=== PATIENT | male | born 1970 | race Caucasian/White ===

== ENCOUNTER 2020-06-18 09:05 | Outpatient (REF) | payer OTHER, SELFPAY ==
[2020-06-18 10:35] LABS: MANUAL DIFF FLAG NO
[2020-06-18 10:41] LABS: Basophils Absolute Auto 0.1 X10*3/uL (0.0-0.2); Eosinophils Absolute Auto 0.3 X10*3/uL (0.0-0.4); Eosinophils Percent Auto 4.6 % (0-4); Hemoglobin 15.6 g/dl (14.0-18.0); Imm Gran Abs Auto 0.03 X10*3/uL (0.00-0.03); Imm Gran Pct Auto 0.5 % (0.0-0.4); Lymphocytes Absolute Auto 1.9 X10*3/uL (1.2-4.9); Lymphocytes Percent Auto 32.9 % (20-40); Mean Corpuscular HGB Conc 33.2 g/dl (31.0-36.0); Mean Corpuscular Hemoglobin 28.1 pg (27.0-33.0); Mean Corpuscular Volume 84.7 fL (80-98); Mean Platelet Volume 9.5 fL (9.4-12.4); Monocytes Absolute Auto 0.7 X10*3/uL (0.1-1.2); Monocytes Percent Auto 12.6 % (2-11); Neutrophils Absolute Auto 2.9 X10*3/uL (2.0-8.3); Neutrophils Percent Auto 48.4 % (45-73); Platelet Count 229 X10*3/uL (160-400); Red Blood Count 5.55 X10*6/uL (4.60-5.80); White Blood Count 5.9 X10*3/uL (4.8-10.8)
[2020-06-18 11:09] LABS: Alanine Aminotransferase 33 U/L (0-40); Albumin Level 4.8 g/dL (3.5-5.0); Alkaline Phosphatase 60 U/L (39-117); Anion Gap 13 (12-20); Aspartate Amino Transferase 19 U/L (5-37); Bilirubin Total 0.8 mg/dL (0.0-1.0); Blood Urea Nitrogen 19 mg/dL (9-16); Calcium 9.6 mg/dL (8.4-10.2); Carbon Dioxide 28 mmol/L (22-29); Chloride 103 mmol/L (96-108); Cholesterol 253 mg/dL; Estimated Glomerular Filt Rate > 60; Glucose Fasting 93 mg/dL (60-99); HDL Cholesterol 50 mg/dL; LDL Cholesterol Calculated 163 mg/dl; Potassium 4.5 mmol/l (3.3-5.1); Sodium 139 mmol/L (135-145); Total Protein 7.7 g/dL (6.5-8.0); Triglycerides 204 mg/dL
== END 2020-06-18 09:06 | disposition home or self-care (01) ==
LOC: HO.WFDLDS 09:05
PROVIDERS: PCP Internal Medicine; Visit Provider Internal Medicine
DX: E78.5 Hyperlipidemia, unspecified (principal)
CPT/HCPCS: 36415; 80053; 80061; 85025

== ENCOUNTER 2022-09-26 09:33 | Outpatient (REF) | payer OTHER, SELFPAY ==
[2022-09-26 09:40] LABS: MANUAL DIFF FLAG NO
[2022-09-26 10:42] LABS: Basophils Absolute Auto 0.1 X10*3/uL (0.0-0.2); Basophils Percent Auto 1.4 % (0-2); Eosinophils Absolute Auto 0.4 X10*3/uL (0.0-0.4); Eosinophils Percent Auto 6.6 % (0-4); Hematocrit 46.5 % (42.0-52.0); Hemoglobin 15.5 g/dl (14.0-18.0); Imm Gran Abs Auto 0.03 X10*3/uL (0.00-0.03); Imm Gran Pct Auto 0.5 % (0.0-0.4); Lymphocytes Absolute Auto 2.4 X10*3/uL (1.2-4.9); Lymphocytes Percent Auto 36.9 % (20-40); Mean Corpuscular HGB Conc 33.3 g/dl (31.0-36.0); Mean Corpuscular Hemoglobin 27.8 pg (27.0-33.0); Mean Corpuscular Volume 83.5 fL (80.0-98.0); Mean Platelet Volume 9.6 fL (9.4-12.4); Monocytes Absolute Auto 0.8 X10*3/uL (0.1-1.2); Monocytes Percent Auto 11.9 % (2-11); Neutrophils Absolute Auto 2.8 x10*3/uL (2.0-8.3); Neutrophils Percent Auto 42.7 % (45-73); Platelet Count 225 X10*3/uL (160-400); Red Blood Count 5.57 X10*6/uL (4.60-5.80); Red Cell Distribution Width 13.2 % (11.0-16.0); White Blood Count 6.5 X10*3/uL (4.8-10.8)
[2022-09-26 11:23] LABS: Alanine Aminotransferase 45 U/L (0-40); Albumin Level 4.5 g/dL (3.5-5.0); Alkaline Phosphatase 57 U/L (39-117); Anion Gap 13 (12-20); Aspartate Amino Transferase 23 U/L (5-37); Bilirubin Total 0.6 mg/dL (0.0-1.0); Blood Urea Nitrogen 19 mg/dL (9-16); Calcium 9.8 mg/dL (8.4-10.2); Carbon Dioxide 27 mmol/L (22-29); Chloride 103 mmol/L (96-108); Cholesterol 265 mg/dL; Estimated Glomerular Filt Rate > 60; Glucose Fasting 86 mg/dL (60-99); HDL Cholesterol 57 mg/dL; LDL Cholesterol Calculated 186 mg/dl; Potassium 4.4 mmol/L (3.3-5.1); Sodium 139 mmol/L (135-145); Total Protein 7.6 g/dL (6.5-8.0); Triglycerides 113 mg/dL
[2022-09-26 11:29] LABS: PSA,Total (Free>4and<10) 0.99 ng/mL (0.00-4.00)
== END 2022-09-26 09:34 | disposition home or self-care (01) ==
LOC: HO.LAB 09:33
PROVIDERS: PCP Internal Medicine; Visit Provider Internal Medicine
DX: Z00.00 Encounter for general adult medical examination without abnormal findings (principal); Z12.5 Encounter for screening for malignant neoplasm of prostate; E78.5 Hyperlipidemia, unspecified
CPT/HCPCS: 36415; 80053; 80061; 84153; 85025

== ENCOUNTER 2022-11-26 08:09 | Outpatient (REF) | payer OTHER, SELFPAY ==
[2022-11-26 09:48] LABS: Alanine Aminotransferase 48 U/L (0-40); Albumin Level 4.5 g/dL (3.5-5.0); Alkaline Phosphatase 54 U/L (39-117); Anion Gap 15 (12-20); Aspartate Amino Transferase 22 U/L (5-37); Bilirubin Total 0.7 mg/dL (0.0-1.0); Blood Urea Nitrogen 17 mg/dL (9-16); Calcium 9.4 mg/dL (8.4-10.2); Carbon Dioxide 26 mmol/L (22-29); Chloride 105 mmol/L (96-108); Cholesterol 197 mg/dL; Estimated Glomerular Filt Rate > 60; Glucose Fasting 96 mg/dL (60-99); HDL Cholesterol 50 mg/dL; LDL Cholesterol Calculated 130 mg/dl; Potassium 4.7 mmol/L (3.3-5.1); Sodium 141 mmol/L (135-145); Total Protein 7.2 g/dL (6.5-8.0); Triglycerides 86 mg/dL
== END 2022-11-26 08:10 | disposition home or self-care (01) ==
LOC: HO.LAB 08:09
PROVIDERS: PCP Internal Medicine; Visit Provider Internal Medicine
DX: Z00.00 Encounter for general adult medical examination without abnormal findings (principal); E78.5 Hyperlipidemia, unspecified
CPT/HCPCS: 36415; 80053; 80061

== ENCOUNTER 2023-01-28 07:57 | Outpatient (REF) | payer OTHER, SELFPAY ==
[2023-01-28 08:55] LABS: Alanine Aminotransferase 39 U/L (0-40); Albumin Level 4.5 g/dL (3.5-5.0); Alkaline Phosphatase 55 U/L (39-117); Anion Gap 15 (12-20); Aspartate Amino Transferase 22 U/L (5-37); Bilirubin Total 0.6 mg/dL (0.0-1.0); Blood Urea Nitrogen 17 mg/dL (9-16); Calcium 9.7 mg/dL (8.4-10.2); Carbon Dioxide 27 mmol/L (22-29); Chloride 107 mmol/L (96-108); Cholesterol 202 mg/dL; Estimated Glomerular Filt Rate > 60; Glucose Fasting 101 mg/dL (60-99); HDL Cholesterol 52 mg/dL; LDL Cholesterol Calculated 128 mg/dl; Potassium 4.6 mmol/L (3.3-5.1); Sodium 144 mmol/L (135-145); Total Protein 7.3 g/dL (6.5-8.0); Triglycerides 111 mg/dL
== END 2023-01-28 07:58 | disposition home or self-care (01) ==
LOC: HO.LAB 07:57
PROVIDERS: PCP Internal Medicine; Visit Provider Internal Medicine
DX: E78.5 Hyperlipidemia, unspecified (principal)
CPT/HCPCS: 36415; 80053; 80061

== ENCOUNTER 2023-05-27 08:22 | Outpatient (REF) | payer OTHER, SELFPAY ==
[2023-05-27 08:53] LABS: Estimated Average Glucose 94 mg/dL; Hemoglobin A1c % 4.9 % (<6.0)
[2023-05-27 09:00] LABS: Alanine Aminotransferase 28 U/L (0-40); Albumin Level 4.6 g/dL (3.5-5.0); Alkaline Phosphatase 53 U/L (39-117); Anion Gap 11 (12-20); Aspartate Amino Transferase 18 U/L (5-37); Bilirubin Total 0.5 mg/dL (0.0-1.0); Blood Urea Nitrogen 18 mg/dL (9-16); Calcium 9.8 mg/dL (8.4-10.2); Carbon Dioxide 27 mmol/L (22-29); Chloride 106 mmol/L (96-108); Cholesterol 188 mg/dL (<200); Estimated Glomerular Filt Rate > 60; Glucose Fasting 95 mg/dL (60-99); HDL Cholesterol 57 mg/dL (>40); LDL Cholesterol Calculated 111 mg/dL (<100); Potassium 4.4 mmol/L (3.3-5.1); Sodium 140 mmol/L (135-145); Total Protein 7.5 g/dL (6.5-8.0); Triglycerides 102 mg/dL (<150)
== END 2023-05-27 08:23 | disposition home or self-care (01) ==
LOC: HO.LAB 08:22
PROVIDERS: PCP Internal Medicine; Visit Provider Internal Medicine
DX: E78.5 Hyperlipidemia, unspecified (principal)
CPT/HCPCS: 36415; 80053; 80061; 83036

== ENCOUNTER 2023-05-29 11:50 | Outpatient (AMB) | payer OTHER, SELFPAY ==
--- NOTE | 2023-05-29 12:01 | A.OFFPC_ITS ---
Vital Signs 05/29/23 12:02 05/29/23 12:41 Height 5 ft 9 in Weight 236 lb BMI 34.8 BP 150/96 H 140/90 H Blood Pressure Location Lt brachial Rt brachial Position Sitting Sitting Pulse 90 Pulse Source Pulse Oximeter Pulse Oximetry (%) 97 Oxygen Delivery Method Room Air Intake Visit Reasons: 4 month follow up Allergies No Known Allergies Allergy (Verified 05/29/23 12:04) Medication List - Last Reconciled 05/29/23 by Misty Pratt MD latanoprost 0.005% drps ophthalmic (eye) pravastatin 40 mg PO DAILY Tobacco use date assessed: 05/29/23 Dental Screening Dental Screen Date: 05/29/23 Did you have a dental visit in the last 12 months?: Yes Did you have a dental problem in the last 6 months where you did not have access to dental care?: No Was dental information given to patient?: Patient has dentist HPI 4 month follow up HPI Details PATIENT PRESENTS FOR THE FOLLOW-UP OF HYPERLIPIDEMIA. He has been tolerating pravastatin. [facility] Medical History Normal colonoscopy Annual physical exam Glaucoma Hyperlipidemia Surgical History No pertinent past surgical history Family History Father HTN (hypertension) Mother Diabetes mellitus Brother No problems noted. Brother Substance use disorder Social History Housing: House Patient Tobacco Use Status: Never used Tobacco e-Cigarette/Vaping Use: Never Used Current occupational status: employed Cognitive needs: No Hearing needs: No Vision needs: Yes Questionnaire Thrive Questionnaire Date Thrive assessed: 09/30/22 BRANDON-7 AMB Questionnaire BRANDON-7 Date BRANDON - 7 assessed: 09/30/22 Source: Developed by Drs. Fredrick Potter, Loree Rivers, Ahlaji Hinton and colleagues, with an educational dave from [employer]. Review of Systems Const All systems reviewed & are unremarkable except as noted in HPI and below Reports no additional complaints Eyes Reports no additional complaints ENT Reports no additional complaints Card Reports no additional complaints Resp Reports no additional complaints GI Reports no additional complaints Physical exam (Primary Care) Vital Signs: Last Vital Signs Pulse 90 05/29/23 12:02 BP 150/96 H 05/29/23 12:02 Pulse Ox 97 05/29/23 12:02 Oxygen Delivery Method Room Air 05/29/23 12:02 BMI result Body Mass Index 34.8 Tobacco/Smoking Status: Tobacco use Status Tobacco use date assessed 05/29/23 05/29/23 12:06 Patient Tobacco Use Status Never used Tobacco 05/29/23 12:06 e-Cigarette/Vaping Use Never Used 05/29/23 12:06 Thrive Assessment: Date of Thrive Assessment Date Thrive assessed 09/30/22 05/29/23 12:06 Const General: no acute distress HENMT Head: Yes normal to inspection Neck Neck: Yes supple Resp Effort & Inspection: normal respiratory effort Auscultation: clear to auscultation bilaterally Cardio Rhythm: regular rhythm Heart sounds: S1 normal heart sound present and S2 normal heart sound present Assessment and Plan Assessment & Plan (1) Elevated BP without diagnosis of hypertension: Code(s): R03.0 - Elevated blood-pressure reading, without diagnosis of hypertension Plan: Start 5 mg of olmesartan, low sodium diet increase physical activity weight loss of 10 lb discussed with the patient. He will follow-up in 2 months (2) Hyperlipidemia: Code(s): E78.5 - Hyperlipidemia, unspecified Plan: Continue pravastatin Medications: New olmesartan 5 mg PO DAILY 90 tabs 1RF olmesartan 5 mg PO DAILY 90 tabs 1RF olmesartan 5 mg PO DAILY 90 tabs 1RF Refilled pravastatin 40 mg PO DAILY 90 tabs 3RF pravastatin 40 mg PO DAILY 90 tabs 3RF Coding Level of Care Code Est Pt Level 3 (89792) Diagnoses Elevated BP without diagnosis of hypertension R03.0 Hyperlipidemia E78.5
[2023-05-29 12:02] VITALS: BP 150/96; PULSE 90; O2SAT 97; BMI 34.8
[2023-05-29 12:41] VITALS: BP 140/90
== END 2023-05-29 12:33 | disposition home or self-care (01) ==
PROVIDERS: PCP Internal Medicine; Visit Provider Internal Medicine
DX: R03.0 Elevated blood-pressure reading, without diagnosis of hypertension (principal); E78.5 Hyperlipidemia, unspecified
CPT/HCPCS: 99213

== ENCOUNTER 2023-08-14 13:20 | Outpatient (AMB) | payer OTHER, SELFPAY ==
[2023-08-14 13:41] VITALS: BP 140/80; PULSE 72; O2SAT 97; BMI 34.1
--- NOTE | 2023-08-14 13:41 | MHC.PC.OV ---
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 Accompanied by: Self / Same As Patient Allergies olmesartan Adverse Reaction (Intermediate, Verified 08/14/23 13:42) myalgia Medication List - Last Reconciled 08/14/23 by Misty Pratt MD amlodipine 2.5 mg PO DAILY 30 days latanoprost 0.005% drps ophthalmic (eye) metoprolol succinate ER 25 mg PO DAILY pravastatin 40 mg PO DAILY Tobacco use date assessed: 08/14/23 Dental Screening Dental Screen Date: 08/14/23 Did you have a dental visit in the last 12 months?: Yes Did you have a dental problem in the last 6 months where you did not have access to dental care?: No Was dental information given to patient?: Patient has dentist HPI 2 month follow up HPI Details Patient presents for the follow-up on hypertension hyperlipidemia. He has been tolerating amlodipine well and lost 5 lb since last visit trying to exercise and eat healthier. Patient was seen by cardiology Dr. Oliver and she added Metoprolol 25 mg. Pt will have Echo and stress test. [facility] Medical History Normal colonoscopy Annual physical exam Glaucoma Hyperlipidemia Surgical History No pertinent past surgical history Family History Father HTN (hypertension) Mother Diabetes mellitus Brother No problems noted. Brother Substance use disorder Social History Housing: House Patient Tobacco Use Status: Never used Tobacco e-Cigarette/Vaping Use: Never Used Current occupational status: employed Cognitive needs: No Hearing needs: No Vision needs: Yes Questionnaire Thrive Questionnaire Date Thrive assessed: 09/30/22 BRANDON-7 AMB Questionnaire BRANDON-7 Date BRANDON - 7 assessed: 09/30/22 Source: Developed by Drs. Fredrick Potter, Loree Rivers, Alhaji Hinton and colleagues, with an educational dave from [employer]. Review of Systems Const All systems reviewed & are unremarkable except as noted in HPI and below Reports no additional complaints Eyes Reports no additional complaints ENT Reports no additional complaints Card Reports no additional complaints Resp Reports no additional complaints GI Reports no additional complaints Reports no additional complaints Physical exam (Primary Care) Vital Signs: Last Vital Signs Pulse 72 08/14/23 13:41 BP 140/80 H 08/14/23 13:41 Pulse Ox 97 08/14/23 13:41 Oxygen Delivery Method Room Air 08/14/23 13:41 BMI result Body Mass Index 34.1 Tobacco/Smoking Status: Tobacco use Status Tobacco use date assessed 08/14/23 08/14/23 13:42 Patient Tobacco Use Status Never used Tobacco 08/14/23 13:42 e-Cigarette/Vaping Use Never Used 08/14/23 13:42 Thrive Assessment: Date of Thrive Assessment Date Thrive assessed 09/30/22 08/14/23 13:42 Const General: no acute distress HENMT Face and sinus: Yes normal facial exam Resp Effort & Inspection: normal respiratory effort Auscultation: clear to auscultation bilaterally Cardio Rhythm: regular rhythm Heart sounds: S1 normal heart sound present and S2 normal heart sound present Assessment and Plan Assessment & Plan (1) HTN (hypertension): Code(s): I10 - Essential (primary) hypertension Plan: Continue current medications. Blood pressure is not at goal and patient was advised to increase amlodipine to 2.5 mg twice a day but he declined. He will continue lifestyle modification low-sodium diet and try to lose more weight. Patient will follow-up with junior administrative assistant after stress test and echo (2) Hyperlipidemia: Code(s): E78.5 - Hyperlipidemia, unspecified Plan: Continue statin (3) Annual physical exam: Code(s): Z00.00 - Encounter for general adult medical examination without abnormal findings Orders: Orders Complete Blood Count Auto Diff 2 Months E78.5 - Hyperlipidemia, unspecified, I10 - Essential (primary) hypertension, Z00.00 - Encounter for general adult medical examination without abnormal findings Comprehensive [place]. Panel Fast 2 Months E78.5 - Hyperlipidemia, unspecified, I10 - Essential (primary) hypertension, Z00.00 - Encounter for general adult medical examination without abnormal findings Lipid Panel 2 Months E78.5 - Hyperlipidemia, unspecified, I10 - Essential (primary) hypertension, Z00.00 - Encounter for general adult medical examination without abnormal findings PSA,Total (Free>4and<10) 2 Months E78.5 - Hyperlipidemia, unspecified, I10 - Essential (primary) hypertension, Z00.00 - Encounter for general adult medical examination without abnormal findings Medications: New metoprolol succinate ER 25 mg PO DAILY 90 tabs 0RF Coding Level of Care Code Est Pt Level 4 (39578) Diagnoses HTN (hypertension) I10 Hyperlipidemia E78.5 Annual physical exam Z00.00
== END 2023-08-14 15:18 | disposition home or self-care (01) ==
PROVIDERS: PCP Internal Medicine; Visit Provider Internal Medicine
DX: I10 Essential (primary) hypertension (principal); E78.5 Hyperlipidemia, unspecified; Z00.00 Encounter for general adult medical examination without abnormal findings
CPT/HCPCS: 99214

== ENCOUNTER 2023-09-30 08:38 | Outpatient (REF) | payer OTHER, SELFPAY ==
[2023-09-30 09:04] LABS: MANUAL DIFF FLAG NO
[2023-09-30 09:58] LABS: Basophils Absolute Auto 0.1 X10*3/uL (0.0-0.2); Basophils Percent Auto 1.2 % (0-2); Eosinophils Absolute Auto 0.3 X10*3/uL (0.0-0.4); Eosinophils Percent Auto 4.6 % (0-4); Hematocrit 43.6 % (42.0-52.0); Hemoglobin 14.7 g/dl (14.0-18.0); Imm Gran Abs Auto 0.01 X10*3/uL (0.00-0.03); Imm Gran Pct Auto 0.2 % (0.0-0.4); Lymphocytes Absolute Auto 2.2 X10*3/uL (1.2-4.9); Lymphocytes Percent Auto 38.5 % (20-40); Mean Corpuscular HGB Conc 33.7 g/dl (31.0-36.0); Mean Corpuscular Hemoglobin 28.2 pg (27.0-33.0); Mean Corpuscular Volume 83.7 fL (80.0-98.0); Mean Platelet Volume 9.8 fL (9.4-12.4); Monocytes Absolute Auto 0.7 X10*3/uL (0.1-1.2); Monocytes Percent Auto 13.1 % (2-11); Neutrophils Absolute Auto 2.4 x10*3/uL (2.0-8.3); Neutrophils Percent Auto 42.4 % (45-73); Platelet Count 193 X10*3/uL (160-400); Red Blood Count 5.21 X10*6/uL (4.60-5.80); Red Cell Distribution Width 12.9 % (11.0-16.0); White Blood Count 5.7 X10*3/uL (4.8-10.8)
[2023-09-30 10:14] LABS: Alanine Aminotransferase 38 U/L (0-40); Albumin Level 4.3 g/dL (3.5-5.0); Alkaline Phosphatase 58 U/L (39-117); Anion Gap 13 (12-20); Aspartate Amino Transferase 21 U/L (5-37); Bilirubin Total 0.7 mg/dL (0.0-1.0); Blood Urea Nitrogen 17 mg/dL (9-16); Calcium 9.5 mg/dL (8.4-10.2); Carbon Dioxide 28 mmol/L (22-29); Chloride 105 mmol/L (96-108); Cholesterol 185 mg/dL (<200); Estimated Glomerular Filt Rate > 60; Glucose Fasting 91 mg/dL (60-99); HDL Cholesterol 49 mg/dL (>40); LDL Cholesterol Calculated 110 mg/dL (<100); Potassium 4.5 mmol/L (3.3-5.1); Sodium 141 mmol/L (135-145); Total Protein 7.3 g/dL (6.5-8.0); Triglycerides 132 mg/dL (<150)
[2023-09-30 10:33] LABS: PSA,Total (Free>4and<10) 0.92 ng/mL (0.00-4.00)
== END 2023-09-30 08:39 | disposition home or self-care (01) ==
LOC: HO.LAB 08:38
PROVIDERS: PCP Internal Medicine; Visit Provider Internal Medicine
DX: Z00.00 Encounter for general adult medical examination without abnormal findings (principal); Z12.5 Encounter for screening for malignant neoplasm of prostate; I10 Essential (primary) hypertension; E78.5 Hyperlipidemia, unspecified
CPT/HCPCS: 36415; 80053; 80061; 84153; 85025

== ENCOUNTER 2023-10-03 10:15 | Outpatient (AMB) | payer OTHER, SELFPAY ==
[2023-10-03 10:47] VITALS: BP 130/82; PULSE 57; O2SAT 97; BMI 33.1
--- NOTE | 2023-10-03 10:47 | MHC.PC.OV ---
Vital Signs 10/03/23 10:47 Height 5 ft 9 in Weight 224 lb BMI 33.1 BP 130/82 Blood Pressure Location Lt brachial Position Sitting Pulse 57 Pulse Source Pulse Oximeter Pulse Oximetry (%) 97 Oxygen Delivery Method Room Air Intake Visit Reasons: Annual PE Intake Note: Pt is here today for PE. Allergies olmesartan Adverse Reaction (Intermediate, Verified 10/03/23 10:50) myalgia Medication List - Last Reconciled 10/03/23 by Misty Pratt MD amlodipine 2.5 mg PO DAILY latanoprost 0.005% drps ophthalmic (eye) metoprolol succinate ER 25 mg PO DAILY pravastatin 40 mg PO DAILY Tobacco use date assessed: 10/03/23 Dental Screening Dental Screen Date: 10/03/23 Did you have a dental visit in the last 12 months?: Yes Did you have a dental problem in the last 6 months where you did not have access to dental care?: No Was dental information given to patient?: Patient has dentist HPI Annual PE HPI Details Pt presents for PE. Patient has started exercising on stationary bike, [place], since and lost 8 lbs. [facility] Medical History (Updated 10/03/23 @ 11:39 by Misty Pratt MD) Normal colonoscopy Annual physical exam Glaucoma Hyperlipidemia Surgical History No pertinent past surgical history Family History Father HTN (hypertension) Mother Diabetes mellitus Brother No problems noted. Brother Substance use disorder Social History Housing: House Patient Tobacco Use Status: Never used Tobacco e-Cigarette/Vaping Use: Never Used Current occupational status: employed Cognitive needs: No Hearing needs: No Vision needs: Yes Questionnaire Thrive Questionnaire Date Thrive assessed: 09/30/22 I am a: Patient What is your living situation today?: I have a steady place to live Within the past 12 months, did the food you bought not last and you didn't have the money to get more?: Never true Within the past 12 months, did you worry whether your food would run out before you got money to buy more?: Never true Please select the resources that you would like help with: None THRIVE Score: 0 AUDIT C Alcohol Use Questionnaire (AUDIT-C) 1. How often do you have a drink containing alcohol?: 2-4 times a month 2. How many drinks containing alcohol do you have on a typical day when you are drinking?: 1 or 2 3. How often do you have six or more drinks on one occasion?: Never Total Score: 2 BRANDON-7 AMB Questionnaire BRANDON-7 Date BRANDON - 7 assessed: 09/30/22 Feeling nervous, anxious, or on edge: 0 = Not at all Not being able to stop or control worryin = Not at all Worrying too much about different things: 0 = Not at all Trouble relaxin = Not at all Being so restless that it is hard to sit still: 0 = Not at all Becoming easily annoyed or irritable: 0 = Not at all Feeling afraid as if something awful might happen: 0 = Not at all Total BRANDON-7 score (0-4 normal; 5-9 mild; 10-14 moderate; 15-21 severe): 0 Source: Developed by Drs. Fredrick Potter, Loree Rivers, Alhaji Hinton and colleagues, with an educational dave from [employer]. Review of Systems Const All systems reviewed & are unremarkable except as noted in HPI and below Reports no additional complaints Eyes Reports no additional complaints ENT Reports no additional complaints Card Reports no additional complaints Resp Reports no additional complaints GI Reports no additional complaints Reports no additional complaints Musc Reports no additional complaints Physical exam (Primary Care) Vital Signs: Last Vital Signs Pulse 57 10/03/23 10:47 BP 130/82 10/03/23 10:47 Pulse Ox 97 10/03/23 10:47 Oxygen Delivery Method Room Air 10/03/23 10:47 BMI result Body Mass Index 33.1 Tobacco/Smoking Status: Tobacco use Status Tobacco use date assessed 10/03/23 10/03/23 10:52 Patient Tobacco Use Status Never used Tobacco 10/03/23 10:52 e-Cigarette/Vaping Use Never Used 10/03/23 10:52 Thrive Assessment: Date of Thrive Assessment Date Thrive assessed 09/30/22 10/03/23 10:52 Const General: no acute distress HENMT Head: Yes normal to inspection Ears: hearing grossly normal bilaterally Face and sinus: Yes normal facial exam Mouth: Normal oral and palatal mucosa present Throat: Yes posterior oropharynx normal Eyes General: appearance normal, both eyes and all related structures Neck Neck: Yes no lymphadenopathy and Yes supple Resp Effort & Inspection: normal respiratory effort Auscultation: clear to auscultation bilaterally Cardio Rhythm: regular rhythm Heart sounds: S1 normal heart sound present and S2 normal heart sound present GI Inspection: Yes normal to inspection Palpation (GI): Soft to palpation Percussion: Yes normal to percussion Auscultation: normal bowel sounds Assessment and Plan Assessment & Plan (1) HTN (hypertension): Comment: stress test negative 09/02, [facility], 09/11/23 Echo LVEF 60%, LA mildly to mod dilated, inf vena cava mildly dilated with poor inspiratory collapse consistent with elevated right atrial pressure Code(s): I10 - Essential (primary) hypertension Plan: Continue current medications ,Lifestyle modification including regular exercise , follow-up in 3 months with a fasting labs before (2) Hyperlipidemia: Code(s): E78.5 - Hyperlipidemia, unspecified Plan: Continue statin (3) Annual physical exam: Code(s): Z00.00 - Encounter for general adult medical examination without abnormal findings Plan: Well-balanced diet regular physical activity discussed with the patient (4) Carotid arterial disease: Comment: Doppler mild plaque 1-49% bilaterally, 08/03 Code(s): I77.9 - Disorder of arteries and arterioles, unspecified Plan: Continue statin and hypertension treatment Orders: Orders Lipid Panel 3 Months E78.5 - Hyperlipidemia, unspecified, I10 - Essential (primary) hypertension, Z00.00 - Encounter for general adult medical examination without abnormal findings Comprehensive [place]. Panel Fast 3 Months E78.5 - Hyperlipidemia, unspecified, I10 - Essential (primary) hypertension, Z00.00 - Encounter for general adult medical examination without abnormal findings Coding Level of Care Code Est Pt Prev Care 40-64y(88163) Diagnoses HTN (hypertension) I10 Hyperlipidemia E78.5 Annual physical exam Z00.00 Carotid arterial disease I77.9
== END 2023-10-03 11:37 | disposition home or self-care (01) ==
PROVIDERS: PCP Internal Medicine; Visit Provider Internal Medicine
DX: I10 Essential (primary) hypertension (principal); E78.5 Hyperlipidemia, unspecified; Z00.00 Encounter for general adult medical examination without abnormal findings; I77.9 Disorder of arteries and arterioles, unspecified
CPT/HCPCS: 99396

== ENCOUNTER 2023-12-30 08:08 | Outpatient (REF) | payer OTHER, SELFPAY ==
[2023-12-30 11:12] LABS: Alanine Aminotransferase 27 U/L (0-40); Albumin Level 4.5 g/dL (3.5-5.0); Alkaline Phosphatase 53 U/L (39-117); Anion Gap 14 (12-20); Aspartate Amino Transferase 19 U/L (5-37); Bilirubin Total 0.6 mg/dL (0.0-1.0); Blood Urea Nitrogen 22 mg/dL (9-16); Calcium 9.7 mg/dL (8.4-10.2); Carbon Dioxide 24 mmol/L (22-29); Chloride 108 mmol/L (96-108); Cholesterol 176 mg/dL (<200); Estimated Glomerular Filt Rate > 60; Glucose Fasting 88 mg/dL (60-99); HDL Cholesterol 54 mg/dL (>40); LDL Cholesterol Calculated 100 mg/dL (<100); Potassium 4.5 mmol/L (3.3-5.1); Sodium 141 mmol/L (135-145); Total Protein 7.5 g/dL (6.5-8.0); Triglycerides 114 mg/dL (<150)
== END 2023-12-30 08:09 | disposition home or self-care (01) ==
LOC: HO.LAB 08:08
PROVIDERS: PCP Internal Medicine; Visit Provider Internal Medicine
DX: Z00.00 Encounter for general adult medical examination without abnormal findings (principal); E78.5 Hyperlipidemia, unspecified; I10 Essential (primary) hypertension
CPT/HCPCS: 36415; 80053; 80061

== ENCOUNTER 2024-01-03 13:36 | Outpatient (AMB) | payer OTHER, SELFPAY ==
[2024-01-03 13:48] VITALS: BP 139/88; PULSE 65; O2SAT 96; BMI 33.7
--- NOTE | 2024-01-03 13:48 | MHC.PC.OV ---
Vital Signs 01/03/24 13:48 Height 5 ft 9 in Weight 228 lb BMI 33.7 BP 139/88 Blood Pressure Location Lt brachial Position Sitting Pulse 65 Pulse Source Pulse Oximeter Pulse Oximetry (%) 96 Oxygen Delivery Method Room Air Intake Visit Reasons: 3 Month F/U Labs Intake Note: Pt is here today for his 3 mo. f/u labs Allergies olmesartan Adverse Reaction (Intermediate, Verified 01/03/24 13:50) myalgia Medication List - Last Reconciled 01/03/24 by Misty Pratt MD amlodipine 5 mg PO DAILY latanoprost 0.005% drps ophthalmic (eye) metoprolol succinate ER 25 mg PO DAILY pravastatin 40 mg PO DAILY Tobacco use date assessed: 01/03/24 Dental Screening Dental Screen Date: 01/03/24 HPI 3 Month F/U Labs HPI Details Pt presents for HTN and hyperlipid. He has been exercising regularly and eating well-balanced diet. [facility] Medical History Normal colonoscopy Annual physical exam Glaucoma Hyperlipidemia Surgical History No pertinent past surgical history Family History Father HTN (hypertension) Mother Diabetes mellitus Brother No problems noted. Brother Substance use disorder Social History Housing: House Patient Tobacco Use Status: Never used Tobacco e-Cigarette/Vaping Use: Never Used Current occupational status: employed Cognitive needs: No Hearing needs: No Vision needs: Yes Questionnaire PHQ-9 Over the last 2 weeks, how often have you been bothered by any of the following problems? 1. Little interest or pleasure in doing things: not at all 2. Feeling down, depressed, or hopeless: not at all 3. Trouble falling or staying asleep, or sleeping too much: not at all 4. Feeling tired or having little energy: not at all 5. Poor appetite or overeating: not at all 6. Feeling bad about yourself - or that you are a failure or have let yourself or your family down: not at all 7. Trouble concentrating on things, such as reading the newspaper or watching television: not at all 8. Moving or speaking so slowly that other people could have noticed. Or the opposite - being so fidgety or restless that you have been moving around a lot more than usual: not at all 9. Thoughts that you would be better off or of hurting yourself in some way: not at all Total score: 0 Depression Screening Interpretation: Negative Depression Screening Done: Yes [id number] - PHQ-9 Billing: Yes Source: Developed by Drs. Fredrick Potter, Loree Rivers, Alhaji Hinton and colleagues, with an educational dave from [employer]. Thrive Questionnaire Date Thrive assessed: 01/03/24 I am a: Patient What is your living situation today?: I have a steady place to live Within the past 12 months, did the food you bought not last and you didn't have the money to get more?: Never true Within the past 12 months, did you worry whether your food would run out before you got money to buy more?: Never true Do you have trouble paying for medicines?: No Do you have trouble getting transportation to medical appointments?: No Do you have trouble paying your heating and electricity bill?: No Do you have trouble taking care of your child, family member or friend?: No Do you have trouble with day-to-day activities such as bathing, preparing meals, shopping, managing finances, etc.?: No Are you currently unemployed and looking for a job?: No Are you interested in more education?: No THRIVE Score: 0 AUDIT C Alcohol Use Questionnaire (AUDIT-C) 1. How often do you have a drink containing alcohol?: Monthly or less 2. How many drinks containing alcohol do you have on a typical day when you are drinking?: 1 or 2 3. How often do you have six or more drinks on one occasion?: Never Total Score: 1 BRANDON-7 AMB Questionnaire BRANDON-7 Date BRANDON - 7 assessed: 01/03/24 Feeling nervous, anxious, or on edge: 0 = Not at all Not being able to stop or control worryin = Not at all Worrying too much about different things: 0 = Not at all Trouble relaxin = Not at all Being so restless that it is hard to sit still: 0 = Not at all Becoming easily annoyed or irritable: 0 = Not at all Feeling afraid as if something awful might happen: 0 = Not at all Total BRANDON-7 score (0-4 normal; 5-9 mild; 10-14 moderate; 15-21 severe): 0 Source: Developed by Drs. Fredrick Potter, Loree Rivers, Alhaji Hinton and colleagues, with an educational dave from [employer]. Review of Systems Const All systems reviewed & are unremarkable except as noted in HPI and below ENT Reports no additional complaints Card Reports no additional complaints Resp Reports no additional complaints GI Reports no additional complaints Reports no additional complaints Physical exam (Primary Care) Vital Signs: Last Vital Signs Pulse 65 01/03/24 13:48 BP 150/90 H 01/03/24 13:48 Pulse Ox 96 01/03/24 13:48 Oxygen Delivery Method Room Air 01/03/24 13:48 BMI result Body Mass Index 33.7 Tobacco/Smoking Status: Tobacco use Status Tobacco use date assessed 01/03/24 01/03/24 13:52 Patient Tobacco Use Status Never used Tobacco 01/03/24 13:48 e-Cigarette/Vaping Use Never Used 01/03/24 13:48 PHQ-9: PHQ-9 Score PHQ-9: Total score 0 01/03/24 13:54 Depression Screening Interpretation: Negative Thrive Assessment: Date of Thrive Assessment Date Thrive assessed 01/03/24 01/03/24 13:54 Const General: no acute distress HENMT Mouth: Normal oral and palatal mucosa present Resp Effort & Inspection: normal respiratory effort Auscultation: clear to auscultation bilaterally Cardio Rhythm: regular rhythm Heart sounds: S1 normal heart sound present and S2 normal heart sound present GI Inspection: Yes normal to inspection Assessment and Plan Assessment & Plan (1) HTN (hypertension): Comment: stress test negative 09/02, [facility], 09/11/23 Echo LVEF 60%, LA mildly to mod dilated, inf vena cava mildly dilated with poor inspiratory collapse consistent with elevated right atrial pressure Code(s): I10 - Essential (primary) hypertension Plan: Increase amlodipine to 5 mg a day continue metoprolol. Patient will continue regular physical activity and will follow-up in 2 months (2) Carotid arterial disease: Comment: Doppler mild plaque 1-49% bilaterally, 08/03 Code(s): I77.9 - Disorder of arteries and arterioles, unspecified Plan: Continue statin (3) Hyperlipidemia: Code(s): E78.5 - Hyperlipidemia, unspecified Plan: Continue statin Medications: New amlodipine 5 mg PO DAILY 90 tabs 0RF Coding Level of Care Code Est Pt Level 4 (73094) Diagnoses HTN (hypertension) I10 Carotid arterial disease I77.9 Hyperlipidemia E78.5
== END 2024-01-03 14:55 | disposition home or self-care (01) ==
PROVIDERS: PCP Internal Medicine; Visit Provider Internal Medicine
DX: I10 Essential (primary) hypertension (principal); I77.9 Disorder of arteries and arterioles, unspecified; E78.5 Hyperlipidemia, unspecified
CPT/HCPCS: 99214

== ENCOUNTER 2024-03-19 12:19 | Outpatient (AMB) | payer OTHER, SELFPAY ==
--- NOTE | 2024-03-19 12:47 | A.OFFPC_ITS ---
Vital Signs 03/19/24 12:52 Height 5 ft 9 in Weight 223 lb BMI 32.9 BP 135/86 Blood Pressure Location Lt brachial Position Sitting Pulse 68 Pulse Source Pulse Oximeter Pulse Oximetry (%) 94 Oxygen Delivery Method Room Air Intake Visit Reasons: 2 Month F/U Labs Intake Note: Patient here to follow up on labs. Allergies olmesartan Adverse Reaction (Intermediate, Verified 03/19/24 12:52) myalgia Medication List - Last Reconciled 03/19/24 by Misty Pratt MD amlodipine 5 mg PO DAILY latanoprost 0.005% drps ophthalmic (eye) metoprolol succinate ER 25 mg PO DAILY pravastatin 40 mg PO DAILY Tobacco use date assessed: 01/03/24 Dental Screening Dental Screen Date: 01/03/24 HPI 2 Month F/U Labs HPI Details Pt presents for f/u HTN and hyperlipid. Patient started exercising riding bike 4 times a week and working out at the gym at least 3 times a week. He has been decreasing caloric intake in well-balanced diet and trying to lose weight for least 6 months. Patient would like to try Wegovy to facilitate weight loss. He reports his blood pressure well controlled at home with readings at 120/75. Patient has been taking amlodipine and metoprolol regularly. She is going for vacation to [place] in 2 weeks. [facility] Medical History (Updated 03/19/24 @ 16:00 by Misty Pratt MD) Normal colonoscopy Annual physical exam Glaucoma Hyperlipidemia Surgical History No pertinent past surgical history Family History Father HTN (hypertension) Mother Diabetes mellitus Brother No problems noted. Brother Substance use disorder Social History Housing: House Patient Tobacco Use Status: Never used Tobacco e-Cigarette/Vaping Use: Never Used Current occupational status: employed Cognitive needs: No Hearing needs: No Vision needs: Yes Questionnaire Thrive Questionnaire Date Thrive assessed: 01/03/24 BRANDON-7 AMB Questionnaire BRANDON-7 Date BRANDON - 7 assessed: 01/03/24 Source: Developed by Drs. Fredrick Potter, Loree Alhaji Rae and colleagues, with an educational dave from [employer]. Review of Systems Const All systems reviewed & are unremarkable except as noted in HPI and below Reports no additional complaints Eyes Reports no additional complaints ENT Reports no additional complaints Card Reports no additional complaints Resp Reports no additional complaints GI Reports no additional complaints Reports no additional complaints Physical exam (Primary Care) Vital Signs: Last Vital Signs Pulse 68 03/19/24 12:52 BP 135/86 03/19/24 12:52 Pulse Ox 94 03/19/24 12:52 Oxygen Delivery Method Room Air 03/19/24 12:52 BMI result Body Mass Index 32.9 Tobacco/Smoking Status: Tobacco use Status Tobacco use date assessed 01/03/24 03/19/24 12:47 Patient Tobacco Use Status Never used Tobacco 03/19/24 12:47 e-Cigarette/Vaping Use Never Used 03/19/24 12:47 Thrive Assessment: Date of Thrive Assessment Date Thrive assessed 01/03/24 03/19/24 12:47 Const General: no acute distress HENMT Head: Yes normal to inspection Ears: hearing grossly normal bilaterally Resp Effort & Inspection: normal respiratory effort Auscultation: clear to auscultation bilaterally Cardio Rhythm: regular rhythm Heart sounds: S1 normal heart sound present and S2 normal heart sound present GI Inspection: Yes normal to inspection Palpation (GI): Soft to palpation Percussion: Yes normal to percussion Auscultation: normal bowel sounds Assessment and Plan Assessment & Plan (1) HTN (hypertension): Comment: stress test negative 09/02, [facility], 09/11/23 Echo LVEF 60%, LA mildly to mod dilated, inf vena cava mildly dilated with poor inspiratory collapse consistent with elevated right atrial pressure Code(s): I10 - Essential (primary) hypertension Plan: Continue current medications patient will monitor his blood pressure at home, low-sodium diet stress management discussed with the patient follow-up in 3 months (2) Hyperlipidemia: Code(s): E78.5 - Hyperlipidemia, unspecified Plan: Continue statin (3) Obesity (BMI 30-39.9): Code(s): E66.9 - Obesity, unspecified Plan: Patient will continue low caloric diet regular physical activity weight goal BP 0.25 weekly will be tried. He will follow-up in 3 months Medications: New amlodipine 5 mg PO DAILY 90 tabs 0RF Wegovy (semaglutide (weight loss)) administer weeks 1 through 4 of therapy 0.25 mg (0.5 mL) subcut QWEEK 2 mL 2RF NS Discontinued amlodipine Discontinued Reason: Change Referral Type 5 mg PO DAILY 90 tabs 0RF Coding Level of Care Code Est Pt Level 4 (82874) Diagnoses HTN (hypertension) I10 Hyperlipidemia E78.5 Obesity (BMI 30-39.9) E66.9
[2024-03-19 12:52] VITALS: BP 135/86; PULSE 68; O2SAT 94; BMI 32.9
== END 2024-03-19 13:40 | disposition home or self-care (01) ==
PROVIDERS: PCP Internal Medicine; Visit Provider Internal Medicine
DX: I10 Essential (primary) hypertension (principal); E78.5 Hyperlipidemia, unspecified; E66.9 Obesity, unspecified; Z68.39 Body mass index [BMI] 39.0-39.9, adult
CPT/HCPCS: 99214

== ENCOUNTER 2024-05-21 12:44 | Outpatient (AMB) | payer OTHER, SELFPAY ==
[2024-05-21 12:47] VITALS: BP 130/86; PULSE 82; O2SAT 98; BMI 32.2
--- NOTE | 2024-05-21 12:47 | MHC.PC.OV ---
Vital Signs 05/21/24 12:47 Height 5 ft 9 in Weight 218 lb BMI 32.2 BP 130/86 Blood Pressure Location Lt brachial Position Sitting Pulse 82 Pulse Source Pulse Oximeter Pulse Oximetry (%) 98 Oxygen Delivery Method Room Air Intake Visit Reasons: 2 month f/u Intake Note: Pt is here today for 2 months follow up visit. Allergies olmesartan Adverse Reaction (Intermediate, Verified 05/21/24 12:47) myalgia Medication List - Last Reconciled 05/21/24 by Misty Pratt MD amlodipine 5 mg PO DAILY latanoprost 0.005% drps ophthalmic (eye) metoprolol succinate ER 25 mg PO DAILY pravastatin 40 mg PO DAILY Wegovy (semaglutide (weight loss)) 0.5 mg (0.5 mL) subcut QWEEK NS Tobacco use date assessed: 05/21/24 Dental Screening Dental Screen Date: 01/03/24 HPI 2 month f/u HPI Details Patient presents for the follow-up on hypertension and hyperlipidemia. He started Wegovy 0.25 mg 2 months ago and lost 5 lb. He started 0.5 mg of Wegovy last week. [facility] Medical History Normal colonoscopy Annual physical exam Glaucoma Hyperlipidemia Surgical History No pertinent past surgical history Family History Father HTN (hypertension) Mother Diabetes mellitus Brother No problems noted. Brother Substance use disorder Social History Housing: House Patient Tobacco Use Status: Never used Tobacco e-Cigarette/Vaping Use: Never Used service: No Current occupational status: employed Cognitive needs: No Hearing needs: No Vision needs: Yes Questionnaire PHQ-9 Over the last 2 weeks, how often have you been bothered by any of the following problems? 1. Little interest or pleasure in doing things: not at all 2. Feeling down, depressed, or hopeless: not at all 3. Trouble falling or staying asleep, or sleeping too much: not at all 4. Feeling tired or having little energy: not at all 5. Poor appetite or overeating: not at all 6. Feeling bad about yourself - or that you are a failure or have let yourself or your family down: not at all 7. Trouble concentrating on things, such as reading the newspaper or watching television: not at all 8. Moving or speaking so slowly that other people could have noticed. Or the opposite - being so fidgety or restless that you have been moving around a lot more than usual: not at all 9. Thoughts that you would be better off or of hurting yourself in some way: not at all Total score: 0 Depression Screening Interpretation: Negative Depression Screening Done: Yes 05030 - PHQ-9 Billing: Yes Source: Developed by Drs. Fredrick Potter, Loree Rivers, Alhaji Hinton and colleagues, with an educational dave from [employer]. Thrive Questionnaire Date Thrive assessed: 05/14/24 I am a: Patient What is your living situation today?: I have a steady place to live Within the past 12 months, did the food you bought not last and you didn't have the money to get more?: Never true Within the past 12 months, did you worry whether your food would run out before you got money to buy more?: Never true Do you have trouble paying for medicines?: No Do you have trouble getting transportation to medical appointments?: No Do you have trouble paying your heating and electricity bill?: No Do you have trouble taking care of your child, family member or friend?: No Do you have trouble with day-to-day activities such as bathing, preparing meals, shopping, managing finances, etc.?: No Are you currently unemployed and looking for a job?: No Are you interested in more education?: No Please select the resources that you would like help with: None Currently or been in a relationship where the following occur: No concerns reported THRIVE Score: 0 AUDIT C Alcohol Use Questionnaire (AUDIT-C) 1. How often do you have a drink containing alcohol?: Monthly or less 2. How many drinks containing alcohol do you have on a typical day when you are drinking?: 1 or 2 3. How often do you have six or more drinks on one occasion?: Never Total Score: 1 BRANDON-7 AMB Questionnaire BRANDON-7 Date BRANDON - 7 assessed: 01/03/24 Feeling nervous, anxious, or on edge: 0 = Not at all Not being able to stop or control worryin = Not at all Worrying too much about different things: 0 = Not at all Trouble relaxin = Not at all Being so restless that it is hard to sit still: 0 = Not at all Becoming easily annoyed or irritable: 0 = Not at all Feeling afraid as if something awful might happen: 0 = Not at all Total BRANDON-7 score (0-4 normal; 5-9 mild; 10-14 moderate; 15-21 severe): 0 Source: Developed by Drs. Fredrick Potter, Loree Rivers, Alhaji Hinton and colleagues, with an educational dave from [employer]. Review of Systems Const All systems reviewed & are unremarkable except as noted in HPI and below ENT Reports no additional complaints Card Reports no additional complaints Resp Reports no additional complaints GI Reports no additional complaints Physical exam (Primary Care) Vital Signs: Last Vital Signs Pulse 82 05/21/24 12:47 BP 130/86 05/21/24 12:47 Pulse Ox 98 05/21/24 12:47 Oxygen Delivery Method Room Air 05/21/24 12:47 BMI result Body Mass Index 32.2 Tobacco/Smoking Status: Tobacco use Status Tobacco use date assessed 05/21/24 05/21/24 12:59 Patient Tobacco Use Status Never used Tobacco 05/21/24 12:59 e-Cigarette/Vaping Use Never Used 05/21/24 12:48 PHQ-9: PHQ-9 Score PHQ-9: Total score 0 05/21/24 12:48 Depression Screening Interpretation: Negative Thrive Assessment: Date of Thrive Assessment Date Thrive assessed 05/14/24 05/21/24 12:48 Currently or been in a relationship where the following occur: No concerns reported Const General: no acute distress HENMT Face and sinus: Yes normal facial exam Throat: Yes posterior oropharynx normal Resp Effort & Inspection: normal respiratory effort Auscultation: clear to auscultation bilaterally Cardio Rhythm: regular rhythm Heart sounds: S1 normal heart sound present and S2 normal heart sound present GI Inspection: Yes normal to inspection Palpation (GI): Soft to palpation Assessment and Plan Assessment & Plan (1) HTN (hypertension): Comment: stress test negative 09/02, [facility], 09/11/23 Echo LVEF 60%, LA mildly to mod dilated, inf vena cava mildly dilated with poor inspiratory collapse consistent with elevated right atrial pressure Code(s): I10 - Essential (primary) hypertension Plan: Continue current medications (2) Hyperlipidemia: Code(s): E78.5 - Hyperlipidemia, unspecified Plan: Continue statin (3) Obesity (BMI 30-39.9): Code(s): E66.9 - Obesity, unspecified Plan: Increase Wegovy to 0.5 mg for 1 month and then to 1 mg as tolerated, continue regular exercise decrease caloric intake, return in 2 months with a fasting labs before Orders: Orders Lipid Panel 2 Months E78.5 - Hyperlipidemia, unspecified, I10 - Essential (primary) hypertension, I77.9 - Disorder of arteries and arterioles, unspecified Comprehensive [place]. Panel Fast 2 Months E78.5 - Hyperlipidemia, unspecified, I10 - Essential (primary) hypertension, I77.9 - Disorder of arteries and arterioles, unspecified Complete Blood Count Auto Diff 2 Months E78.5 - Hyperlipidemia, unspecified, I10 - Essential (primary) hypertension, I77.9 - Disorder of arteries and arterioles, unspecified Medications: Refilled metoprolol succinate ER 25 mg PO DAILY 90 tabs 3RF amlodipine 5 mg PO DAILY 90 tabs 3RF pravastatin 40 mg PO DAILY 90 tabs 3RF Coding Level of Care Code Est Pt Level 4 (90843) Diagnoses HTN (hypertension) I10 Hyperlipidemia E78.5 Obesity (BMI 30-39.9) E66.9
== END 2024-05-21 13:45 | disposition home or self-care (01) ==
PROVIDERS: PCP Internal Medicine; Visit Provider Internal Medicine
DX: I10 Essential (primary) hypertension (principal); E78.5 Hyperlipidemia, unspecified; E66.9 Obesity, unspecified; Z68.32 Body mass index [BMI] 32.0-32.9, adult
CPT/HCPCS: 99214

== ENCOUNTER 2024-07-20 07:58 | Outpatient (REF) | payer OTHER, SELFPAY ==
[2024-07-20 08:31] LABS: MANUAL DIFF FLAG NO
[2024-07-20 09:52] LABS: Basophils Absolute Auto 0.1 X10*3/uL (0.0-0.2); Basophils Percent Auto 1.3 % (0-2); Eosinophils Absolute Auto 0.3 X10*3/uL (0.0-0.4); Eosinophils Percent Auto 4.5 % (0-4); Hematocrit 44.1 % (42.0-52.0); Hemoglobin 15.1 g/dl (14.0-18.0); Imm Gran Abs Auto 0.02 X10*3/uL (0.00-0.03); Imm Gran Pct Auto 0.4 % (0.0-0.4); Mean Corpuscular HGB Conc 34.2 g/dl (31.0-36.0); Mean Corpuscular Hemoglobin 28.5 pg (27.0-33.0); Mean Corpuscular Volume 83.2 fL (80.0-98.0); Mean Platelet Volume 9.2 fL (9.4-12.4); Monocytes Absolute Auto 0.8 X10*3/uL (0.1-1.2); Monocytes Percent Auto 14.5 % (2-11); Neutrophils Absolute Auto 2.3 x10*3/uL (2.0-8.3); Neutrophils Percent Auto 42.3 % (45-73); Platelet Count 217 X10*3/uL (160-400); Red Cell Distribution Width 12.9 % (11.0-16.0); White Blood Count 5.5 X10*3/uL (4.8-10.8)
[2024-07-20 10:29] LABS: Alanine Aminotransferase 35 U/L (0-40); Albumin Level 4.4 g/dL (3.5-5.0); Alkaline Phosphatase 49 U/L (39-117); Anion Gap 13 (12-20); Aspartate Amino Transferase 26 U/L (5-37); Bilirubin Total 0.8 mg/dL (0.0-1.0); Blood Urea Nitrogen 20 mg/dL (9-16); Calcium 9.9 mg/dL (8.4-10.2); Carbon Dioxide 26 mmol/L (22-29); Chloride 106 mmol/L (96-108); Cholesterol 166 mg/dL (<200); Estimated Glomerular Filt Rate > 60; Glucose Fasting 86 mg/dL (60-99); HDL Cholesterol 47 mg/dL (>40); LDL Cholesterol Calculated 100 mg/dL (<100); Potassium 4.5 mmol/L (3.3-5.1); Sodium 140 mmol/L (135-145); Total Protein 7.6 g/dL (6.5-8.0); Triglycerides 98 mg/dL (<150)
== END 2024-07-20 07:59 | disposition home or self-care (01) ==
LOC: HO.LAB 07:58
PROVIDERS: PCP Internal Medicine; Visit Provider Internal Medicine
DX: I10 Essential (primary) hypertension (principal); E78.5 Hyperlipidemia, unspecified; I77.9 Disorder of arteries and arterioles, unspecified
CPT/HCPCS: 36415; 80053; 80061; 85025

== ENCOUNTER 2024-07-22 12:40 | Outpatient (AMB) | payer OTHER, SELFPAY ==
--- NOTE | 2024-07-22 12:48 | MHC.PC.OV ---
Vital Signs 07/22/24 12:49 Height 5 ft 9 in Weight 218 lb BMI 32.2 BP 126/80 Blood Pressure Location Lt brachial Position Sitting Pulse 79 Pulse Source Pulse Oximeter Pulse Oximetry (%) 96 Oxygen Delivery Method Room Air Intake Visit Reasons: 2 month f/u Intake Note: Pt is here today for 2 months follow up visit. Allergies olmesartan Adverse Reaction (Intermediate, Verified 07/22/24 12:49) myalgia Medication List - Last Reconciled 07/22/24 by Misty Pratt MD amlodipine 5 mg PO DAILY latanoprost 0.005% drps ophthalmic (eye) metoprolol succinate ER 25 mg PO DAILY pravastatin 40 mg PO DAILY Wegovy (semaglutide (weight loss)) 1.7 mg (0.75 mL) subcut QWEEK NS Tobacco use date assessed: 05/21/24 Dental Screening Dental Screen Date: 01/03/24 HPI 2 month f/u HPI Details Patient presents for the follow-up on hypertension hyperlipidemia. He has been taking Wegovy for the 5 months and lost about 15 lb. Patient has been physically active exercising at least 3 times a week [facility] Medical History Normal colonoscopy Annual physical exam Glaucoma Hyperlipidemia Surgical History No pertinent past surgical history Family History Father HTN (hypertension) Mother Diabetes mellitus Brother No problems noted. Brother Substance use disorder Social History Housing: House Patient Tobacco Use Status: Never used Tobacco e-Cigarette/Vaping Use: Never Used service: No Current occupational status: employed Cognitive needs: No Hearing needs: No Vision needs: Yes Questionnaire Thrive Questionnaire Date Thrive assessed: 05/14/24 I am a: Patient What is your living situation today?: I have a steady place to live Within the past 12 months, did the food you bought not last and you didn't have the money to get more?: Never true Within the past 12 months, did you worry whether your food would run out before you got money to buy more?: Never true Do you have trouble paying for medicines?: No Do you have trouble getting transportation to medical appointments?: No Do you have trouble paying your heating and electricity bill?: No Do you have trouble taking care of your child, family member or friend?: No Do you have trouble with day-to-day activities such as bathing, preparing meals, shopping, managing finances, etc.?: No Are you currently unemployed and looking for a job?: No Are you interested in more education?: No Please select the resources that you would like help with: None Currently or been in a relationship where the following occur: No concerns reported THRIVE Score: 0 BRANDON-7 AMB Questionnaire BRANDON-7 Date BRANDON - 7 assessed: 01/03/24 Source: Developed by Drs. Fredrick Potter, Loree Rivers, Alhaji Hinton and colleagues, with an educational dave from [employer]. Review of Systems Const All systems reviewed & are unremarkable except as noted in HPI and below Eyes Reports no additional complaints Card Reports no additional complaints Resp Reports no additional complaints GI Reports no additional complaints Reports no additional complaints Physical exam (Primary Care) Vital Signs: Last Vital Signs Pulse 79 07/22/24 12:49 BP 126/80 07/22/24 12:49 Pulse Ox 96 07/22/24 12:49 Oxygen Delivery Method Room Air 07/22/24 12:49 BMI result Body Mass Index 32.2 Tobacco/Smoking Status: Tobacco use Status Tobacco use date assessed 05/21/24 07/22/24 12:48 Patient Tobacco Use Status Never used Tobacco 07/22/24 12:48 e-Cigarette/Vaping Use Never Used 07/22/24 12:48 Thrive Assessment: Date of Thrive Assessment Date Thrive assessed 05/14/24 07/22/24 12:48 Currently or been in a relationship where the following occur: No concerns reported Const General: no acute distress HENMT Head: Yes normal to inspection Resp Effort & Inspection: normal respiratory effort Auscultation: clear to auscultation bilaterally Cardio Rhythm: regular rhythm Heart sounds: S1 normal heart sound present and S2 normal heart sound present GI Inspection: Yes normal to inspection Palpation (GI): Soft to palpation Percussion: Yes normal to percussion Auscultation: normal bowel sounds Coding Level of Care Code Est Pt Level 4 (50608) Diagnoses HTN (hypertension) I10 Hyperlipidemia E78.5 Obesity (BMI 30-39.9) E66.9 Assessment & Plan Assessment & Plan (1) HTN (hypertension): Comment: stress test negative 09/02, [facility], 09/11/23 Echo LVEF 60%, LA mildly to mod dilated, inf vena cava mildly dilated with poor inspiratory collapse consistent with elevated right atrial pressure Code(s): I10 - Essential (primary) hypertension Category: Medical Plan: Continue current medications regular exercise (2) Hyperlipidemia: Code(s): E78.5 - Hyperlipidemia, unspecified Category: Medical Plan: Continue statin (3) Obesity (BMI 30-39.9): Code(s): E66.9 - Obesity, unspecified Category: Medical Plan: Increase Wegovy to 1.7 mg weekly continue decreasing caloric intake regular exercise return for physical in October Orders: Orders Comprehensive [place]. Panel Fast 3 Months E66.9 - Obesity, unspecified, E78.5 - Hyperlipidemia, unspecified, I10 - Essential (primary) hypertension, Z00.00 - Encounter for general adult medical examination without abnormal findings Lipid Panel 3 Months E66.9 - Obesity, unspecified, E78.5 - Hyperlipidemia, unspecified, I10 - Essential (primary) hypertension, Z00.00 - Encounter for general adult medical examination without abnormal findings PSA,Total (Free>4and<10) 3 Months E66.9 - Obesity, unspecified, E78.5 - Hyperlipidemia, unspecified, I10 - Essential (primary) hypertension, Z00.00 - Encounter for general adult medical examination without abnormal findings UA w Microscopic 3 Months E66.9 - Obesity, unspecified, E78.5 - Hyperlipidemia, unspecified, I10 - Essential (primary) hypertension, Z00.00 - Encounter for general adult medical examination without abnormal findings Complete Blood Count Auto Diff 3 Months E66.9 - Obesity, unspecified, E78.5 - Hyperlipidemia, unspecified, I10 - Essential (primary) hypertension, Z00.00 - Encounter for general adult medical examination without abnormal findings Medications: New Wegovy (semaglutide (weight loss)) 1.7 mg (0.75 mL) subcut QWEEK 3 mL 2RF NS Refilled metoprolol succinate ER 25 mg PO DAILY 90 tabs 3RF Discontinued semaglutide (weight loss) (Wegovy) administer weeks 9 through 12 of therapy Discontinued Reason: Doctor's Order 1 mg (0.5 mL) subcut QWEEK 2 mL 1RF
[2024-07-22 12:49] VITALS: BP 126/80; PULSE 79; O2SAT 96; BMI 32.2
== END 2024-07-22 13:27 | disposition home or self-care (01) ==
PROVIDERS: PCP Internal Medicine; Visit Provider Internal Medicine
DX: I10 Essential (primary) hypertension (principal); E78.5 Hyperlipidemia, unspecified; E66.9 Obesity, unspecified; Z68.32 Body mass index [BMI] 32.0-32.9, adult

== ENCOUNTER 2024-10-12 08:11 | Outpatient (REF) | payer OTHER, SELFPAY ==
[2024-10-12 08:25] LABS: MANUAL DIFF FLAG NO
[2024-10-12 09:22] LABS: Basophils Absolute Auto 0.1 X10*3/uL (0.0-0.2); Basophils Percent Auto 0.9 % (0-2); Eosinophils Absolute Auto 0.3 X10*3/uL (0.0-0.4); Eosinophils Percent Auto 5.1 % (0-4); Hematocrit 45.5 % (42.0-52.0); Hemoglobin 15.3 g/dl (14.0-18.0); Imm Gran Abs Auto 0.02 X10*3/uL (0.00-0.03); Imm Gran Pct Auto 0.4 % (0.0-0.4); Lymphocytes Absolute Auto 2.1 X10*3/uL (1.2-4.9); Lymphocytes Percent Auto 38.2 % (20-40); Mean Corpuscular HGB Conc 33.6 g/dl (31.0-36.0); Mean Corpuscular Hemoglobin 27.9 pg (27.0-33.0); Mean Corpuscular Volume 82.9 fL (80.0-98.0); Mean Platelet Volume 9.2 fL (9.4-12.4); Monocytes Absolute Auto 0.6 X10*3/uL (0.1-1.2); Monocytes Percent Auto 11.6 % (2-11); Neutrophils Absolute Auto 2.4 x10*3/uL (2.0-8.3); Neutrophils Percent Auto 43.8 % (45-73); Platelet Count 219 X10*3/uL (160-400); Red Blood Count 5.49 X10*6/uL (4.60-5.80); Red Cell Distribution Width 12.6 % (11.0-16.0); White Blood Count 5.5 X10*3/uL (4.8-10.8)
[2024-10-12 10:13] LABS: Alanine Aminotransferase 31 U/L (0-40); Albumin Level 4.5 g/dL (3.5-5.0); Alkaline Phosphatase 54 U/L (39-117); Anion Gap 14 (12-20); Aspartate Amino Transferase 23 U/L (5-37); Bilirubin Total 0.6 mg/dL (0.0-1.0); Blood Urea Nitrogen 20 mg/dL (9-16); Calcium 9.4 mg/dL (8.4-10.2); Carbon Dioxide 25 mmol/L (22-29); Chloride 105 mmol/L (96-108); Cholesterol 164 mg/dL (<200); Estimated Glomerular Filt Rate > 60; Glucose Fasting 84 mg/dL (60-99); HDL Cholesterol 44 mg/dL (>40); LDL Cholesterol Calculated 99 mg/dL (<100); Potassium 4.5 mmol/L (3.3-5.1); Sodium 139 mmol/L (135-145); Triglycerides 107 mg/dL (<150)
[2024-10-12 10:14] LABS: Appearance Urine Clear; Color Urine Yellow; Glucose Urine UA Negative (Negative); Leukocyte Esterase Urine Negative (Negative); Nitrite Urine Negative (Negative); PH 5.5 (5.0-9.0); Specific Gravity - Urine >= 1.030 (1.005-1.025); Urine Blood Negative (Negative); Urine Ketones Negative (Negative); Urine Protein Trace mg/dL (Neg-Trace)
[2024-10-12 10:20] LABS: Bacteria Urine None Seen (None Seen); Hyaline Casts Urine 0-2 /LPF (0-2); RBC Urine 0-2 /HPF (0-2); Squamous Epithelial Cell Urine 0-2 /HPF (0-2); WBC Urine 0-5 /HPF (0-5)
[2024-10-12 10:27] LABS: PSA,Total (Free>4and<10) 0.97 ng/mL (0.00-4.00)
== END 2024-10-12 08:12 | disposition home or self-care (01) ==
LOC: HO.LAB 08:11
PROVIDERS: PCP Internal Medicine; Visit Provider Internal Medicine
DX: Z00.00 Encounter for general adult medical examination without abnormal findings (principal); E78.5 Hyperlipidemia, unspecified; I10 Essential (primary) hypertension; E66.9 Obesity, unspecified; Z12.5 Encounter for screening for malignant neoplasm of prostate
CPT/HCPCS: 36415; 80053; 80061; 81001; 84153; 85025

== ENCOUNTER 2024-10-17 11:17 | Outpatient (AMB) | payer OTHER, SELFPAY ==
--- NOTE | 2024-10-17 11:18 | MHC.PC.OV ---
Vital Signs 10/17/24 11:19 Height 5 ft 9 in Weight 218 lb BMI 32.2 BP 138/90 H Blood Pressure Location Lt brachial Position Sitting Pulse 70 Pulse Source Pulse Oximeter Temp 98.4 F Temp Source Oral Pulse Oximetry (%) 97 Oxygen Delivery Method Room Air Intake Visit Reasons: Annual PE Intake Note: Pt is here today for PE. Allergies olmesartan Adverse Reaction (Intermediate, Verified 10/17/24 11:20) myalgia Medication List - Last Reconciled 10/17/24 by Misty Pratt MD amlodipine 5 mg PO DAILY latanoprost 0.005% drps ophthalmic (eye) metoprolol succinate ER 25 mg PO DAILY pravastatin 40 mg PO DAILY semaglutide (weight loss) (Wegovy) 2.4 mg (0.75 mL) subcut QWEEK Wegovy (semaglutide (weight loss)) 1.7 mg (0.75 mL) subcut QWEEK NS Tobacco use date assessed: 10/17/24 Dental Screening Dental Screen Date: 10/17/24 Did you have a dental visit in the last 12 months?: Yes Did you have a dental problem in the last 6 months where you did not have access to dental care?: No Was dental information given to patient?: Patient has dentist HPI Annual PE HPI Details Pt presents for PE. [facility] Medical History Normal colonoscopy Annual physical exam Glaucoma Hyperlipidemia Surgical History No pertinent past surgical history Family History Father HTN (hypertension) Mother Diabetes mellitus Brother No problems noted. Brother Substance use disorder Social History Housing: House Patient Tobacco Use Status: Never used Tobacco e-Cigarette/Vaping Use: Never Used service: No Current occupational status: employed Cognitive needs: No Hearing needs: No Vision needs: Yes Questionnaire PHQ-9 Over the last 2 weeks, how often have you been bothered by any of the following problems? 1. Little interest or pleasure in doing things: not at all 2. Feeling down, depressed, or hopeless: not at all 3. Trouble falling or staying asleep, or sleeping too much: not at all 4. Feeling tired or having little energy: not at all 5. Poor appetite or overeating: not at all 6. Feeling bad about yourself - or that you are a failure or have let yourself or your family down: not at all 7. Trouble concentrating on things, such as reading the newspaper or watching television: not at all 8. Moving or speaking so slowly that other people could have noticed. Or the opposite - being so fidgety or restless that you have been moving around a lot more than usual: not at all 9. Thoughts that you would be better off or of hurting yourself in some way: not at all Total score: 0 Depression Screening Interpretation: Negative Depression Screening Done: Yes 01925 - PHQ-9 Billing: Yes Source: Developed by Drs. Fredrick Potter, Loree Rivers, Alhaji Hinton and colleagues, with an educational dave from [employer]. Thrive Questionnaire Date Thrive assessed: 10/17/24 I am a: Patient What is your living situation today?: I have a steady place to live Within the past 12 months, did the food you bought not last and you didn't have the money to get more?: Never true Within the past 12 months, did you worry whether your food would run out before you got money to buy more?: Never true Do you have trouble paying for medicines?: No Do you have trouble getting transportation to medical appointments?: No Do you have trouble paying your heating and electricity bill?: No Do you have trouble taking care of your child, family member or friend?: No Do you have trouble with day-to-day activities such as bathing, preparing meals, shopping, managing finances, etc.?: No Are you currently unemployed and looking for a job?: No Are you interested in more education?: No Please select the resources that you would like help with: None Currently or been in a relationship where the following occur: No concerns reported THRIVE Score: 0 AUDIT C Alcohol Use Questionnaire (AUDIT-C) 1. How often do you have a drink containing alcohol?: Monthly or less 2. How many drinks containing alcohol do you have on a typical day when you are drinking?: 1 or 2 3. How often do you have six or more drinks on one occasion?: Never Total Score: 1 BRANDON-7 AMB Questionnaire BRANDON-7 Date BRANDON - 7 assessed: 10/17/24 Feeling nervous, anxious, or on edge: 0 = Not at all Not being able to stop or control worryin = Not at all Worrying too much about different things: 0 = Not at all Trouble relaxin = Not at all Being so restless that it is hard to sit still: 0 = Not at all Becoming easily annoyed or irritable: 0 = Not at all Feeling afraid as if something awful might happen: 0 = Not at all Total BRANDON-7 score (0-4 normal; 5-9 mild; 10-14 moderate; 15-21 severe): 0 Source: Developed by Drs. Fredrick Potter, Loree Rivers, Alhaji Hinton and colleagues, with an educational dave from [employer]. BRANDON-7 Assessment Billing BRANDON-7 Assessment Tool: BRANDON-7 Assessment 08695 Review of Systems Const All systems reviewed & are unremarkable except as noted in HPI and below Reports no additional complaints Eyes Reports no additional complaints ENT Reports no additional complaints Card Reports no additional complaints Resp Reports no additional complaints GI Reports no additional complaints Reports no additional complaints Physical exam (Primary Care) Vital Signs: Last Vital Signs Temp 98.4 F 10/17/24 11:19 Pulse 70 10/17/24 11:19 BP 138/90 H 10/17/24 11:19 Pulse Ox 97 10/17/24 11:19 Oxygen Delivery Method Room Air 10/17/24 11:19 BMI result Body Mass Index 32.2 Tobacco/Smoking Status: Tobacco use Status Tobacco use date assessed 10/17/24 10/17/24 11:22 Patient Tobacco Use Status Never used Tobacco 10/17/24 11:22 e-Cigarette/Vaping Use Never Used 10/17/24 11:20 PHQ-9: PHQ-9 Score PHQ-9: Total score 0 10/17/24 11:22 Depression Screening Interpretation: Negative Thrive Assessment: Date of Thrive Assessment Date Thrive assessed 10/17/24 10/17/24 11:22 Currently or been in a relationship where the following occur: No concerns reported Const General: no acute distress HENMT Head: Yes normal to inspection Ears: hearing grossly normal bilaterally Face and sinus: Yes normal facial exam Throat: Yes posterior oropharynx normal Eyes General: appearance normal, both eyes and all related structures Neck Neck: Yes no lymphadenopathy and Yes supple Resp Effort & Inspection: normal respiratory effort Auscultation: clear to auscultation bilaterally Cardio Rhythm: regular rhythm Heart sounds: S1 normal heart sound present and S2 normal heart sound present GI Inspection: Yes normal to inspection Palpation (GI): Soft to palpation Percussion: Yes normal to percussion Auscultation: normal bowel sounds Coding Level of Care Code Est Pt Prev Care 40-64y(69839) Diagnoses Carotid arterial disease I77.9 HTN (hypertension) I10 Annual physical exam Z00.00 Obesity (BMI 30-39.9) E66.9 Additional Codes BRANDON-7 Assessment Billing - BRANDON-7 Assessment Tool: BRANDON-7 Assessment 74148 ([id number]) PHQ-9 - 78418 - PHQ-9 Billing: Yes ([id number]) Assessment & Plan Assessment & Plan (1) Carotid arterial disease: Comment: Doppler mild plaque 1-49% bilaterally, 08/03 Code(s): I77.9 - Disorder of arteries and arterioles, unspecified Category: Medical Plan: Continue statin (2) HTN (hypertension): Comment: stress test negative 09/02, [facility], 09/11/23 Echo LVEF 60%, LA mildly to mod dilated, inf vena cava mildly dilated with poor inspiratory collapse consistent with elevated right atrial pressure Code(s): I10 - Essential (primary) hypertension Category: Medical Plan: Increase amlodipine to 10 mg a day. Continue low-sodium diet regular exercise weight loss follow-up in 3 months (3) Annual physical exam: Code(s): Z00.00 - Encounter for general adult medical examination without abnormal findings Category: Medical Plan: Well-balanced diet regular physical activity weight loss discussed with the patient. (4) Obesity (BMI 30-39.9): Code(s): E66.9 - Obesity, unspecified Category: Medical Plan: Continue decreasing caloric intake increasing physical activity , Wegovy will be increased to 2. 4 mg weekly Orders: Orders Comprehensive [place]. Panel Fast 3 Months E78.5 - Hyperlipidemia, unspecified, I10 - Essential (primary) hypertension Lipid Panel 3 Months E78.5 - Hyperlipidemia, unspecified, I10 - Essential (primary) hypertension Medications: New semaglutide (weight loss) (Wegovy) 2.4 mg (0.75 mL) subcut QWEEK 9 mL 1RF amlodipine 10 mg PO DAILY 90 tabs 1RF Refilled metoprolol succinate ER 25 mg PO DAILY 90 tabs 3RF pravastatin 40 mg PO DAILY 90 tabs 3RF Discontinued amlodipine Discontinued Reason: Doctor's Order 5 mg PO DAILY 90 tabs 3RF Wegovy (semaglutide (weight loss)) Discontinued Reason: Doctor's Order 1.7 mg (0.75 mL) subcut QWEEK 3 mL 2RF NS
[2024-10-17 11:19] VITALS: BP 138/90; PULSE 70; TEMP 36.9; O2SAT 97; BMI 32.2
== END 2024-10-17 12:15 | disposition home or self-care (01) ==
LOC: HO.HMCC 11:17
PROVIDERS: PCP Internal Medicine; Visit Provider Internal Medicine
DX: Z00.00 Encounter for general adult medical examination without abnormal findings (principal); I77.9 Disorder of arteries and arterioles, unspecified; E66.9 Obesity, unspecified; Z68.32 Body mass index [BMI] 32.0-32.9, adult; I10 Essential (primary) hypertension

== ENCOUNTER → 2024-10-17 11:17 | Outpatient (BNVA) | payer OTHER, SELFPAY | PROVIDERS: PCP Internal Medicine; Visit Provider Internal Medicine | DX: Z00.00 Encounter for general adult medical examination without abnormal findings (principal); I77.9 Disorder of arteries and arterioles, unspecified; I10 Essential (primary) hypertension; E66.9 Obesity, unspecified; Z68.32 Body mass index [BMI] 32.0-32.9, adult; Z79.899 Other long term (current) drug therapy | CPT/HCPCS: 96127 ==

== ENCOUNTER 2025-01-11 08:21 | Outpatient (REF) | payer OTHER, SELFPAY ==
[2025-01-11 10:39] LABS: Alanine Aminotransferase 28 U/L (0-40); Albumin Level 4.5 g/dL (3.5-5.0); Alkaline Phosphatase 54 U/L (39-117); Anion Gap 14 (12-20); Aspartate Amino Transferase 22 U/L (5-37); Bilirubin Total 0.6 mg/dL (0.0-1.0); Blood Urea Nitrogen 18 mg/dL (9-16); Calcium 9.7 mg/dL (8.4-10.2); Carbon Dioxide 25 mmol/L (22-29); Chloride 106 mmol/L (96-108); Cholesterol 156 mg/dL (<200); Estimated Glomerular Filt Rate > 60; Glucose Fasting 85 mg/dL (60-99); HDL Cholesterol 48 mg/dL (>40); LDL Cholesterol Calculated 93 mg/dL (<100); Potassium 4.8 mmol/L (3.3-5.1); Sodium 140 mmol/L (135-145); Total Protein 7.4 g/dL (6.5-8.0); Triglycerides 76 mg/dL (<150)
== END 2025-01-11 08:22 | disposition home or self-care (01) ==
LOC: HO.LAB 08:21
PROVIDERS: PCP Internal Medicine; Visit Provider Internal Medicine
DX: I10 Essential (primary) hypertension (principal); E78.5 Hyperlipidemia, unspecified
CPT/HCPCS: 36415; 80053; 80061

== ENCOUNTER 2025-01-15 11:29 | Outpatient (AMB) | payer OTHER, SELFPAY ==
--- NOTE | 2025-01-15 11:32 | A.OFFPC_ITS ---
Vital Signs 01/15/25 11:34 Height 5 ft 9 in Weight 210 lb BMI 31.0 BP 128/84 Blood Pressure Location Rt brachial Position Sitting Respiration 18 Pulse 75 Pulse Source Pulse Oximeter Temp 98.0 F Temp Source Oral Pulse Oximetry (%) 98 Oxygen Delivery Method Room Air Intake Visit Reasons: 3m f/u Intake Note: Pt is here today for 3 months follow up visit. Allergies olmesartan Adverse Reaction (Intermediate, Verified 01/15/25 11:35) myalgia Medication List - Last Reconciled 01/15/25 by Misty Pratt MD amlodipine 10 mg PO DAILY latanoprost 0.005% drps ophthalmic (eye) metoprolol succinate ER 25 mg PO DAILY pravastatin 40 mg PO DAILY semaglutide (weight loss) (Wegovy) 2.4 mg (0.75 mL) subcut QWEEK Tobacco use date assessed: 01/15/25 Dental Screening Dental Screen Date: 10/17/24 HPI 3m f/u HPI Details Pt presents for HTN, hyperlipid stable on meds. Pt has been taking We govy 2.5 mg weekly and lost 10 lb since last visit. Patient has been tolerating medication well and has been decreasing caloric intake and increasing physical activity. [facility] Medical History (Updated 01/15/25 @ 15:48 by Misty Pratt MD) HTN (hypertension) Carotid arterial disease Obesity (BMI 30-39.9) Normal colonoscopy Annual physical exam Glaucoma Hyperlipidemia Surgical History No pertinent past surgical history Family History Father HTN (hypertension) Mother Diabetes mellitus Brother No problems noted. Brother Substance use disorder Social History Housing: House Patient Tobacco Use Status: Never used Tobacco e-Cigarette/Vaping Use: Never Used service: No Current occupational status: employed Cognitive needs: No Hearing needs: No Vision needs: Yes Questionnaire PHQ-9 Over the last 2 weeks, how often have you been bothered by any of the following problems? 1. Little interest or pleasure in doing things: not at all 2. Feeling down, depressed, or hopeless: not at all 3. Trouble falling or staying asleep, or sleeping too much: not at all 4. Feeling tired or having little energy: not at all 5. Poor appetite or overeating: not at all 6. Feeling bad about yourself - or that you are a failure or have let yourself or your family down: not at all 7. Trouble concentrating on things, such as reading the newspaper or watching television: not at all 8. Moving or speaking so slowly that other people could have noticed. Or the opposite - being so fidgety or restless that you have been moving around a lot more than usual: not at all 9. Thoughts that you would be better off or of hurting yourself in some way: not at all Total score: 0 Depression Screening Interpretation: Negative Depression Screening Done: Yes 97358 - PHQ-9 Billing: Yes Source: Developed by Drs. Fredrick Potter, Alhaji Barone and colleagues, with an educational dave from [employer]. Thrive Questionnaire Date Thrive assessed: 01/15/25 I am a: Patient What is your living situation today?: I have a steady place to live Within the past 12 months, did the food you bought not last and you didn't have the money to get more?: Never true Within the past 12 months, did you worry whether your food would run out before you got money to buy more?: Never true Do you have trouble paying for medicines?: No Do you have trouble getting transportation to medical appointments?: No Do you have trouble paying your heating and electricity bill?: No Do you have trouble taking care of your child, family member or friend?: No Do you have trouble with day-to-day activities such as bathing, preparing meals, shopping, managing finances, etc.?: No Are you currently unemployed and looking for a job?: No Are you interested in more education?: No Please select the resources that you would like help with: None Currently or been in a relationship where the following occur: No concerns reported THRIVE Score: 0 BRANDON-7 AMB Questionnaire BRANDON-7 Date BRANDON - 7 assessed: 10/17/24 Source: Developed by Drs. Fredrick Potter, Loree Rivers, Alhaji Hinton and colleagues, with an educational dave from [employer]. Review of Systems Const All systems reviewed & are unremarkable except as noted in HPI and below Card Reports no additional complaints Resp Reports no additional complaints GI Reports no additional complaints Reports no additional complaints Physical exam (Primary Care) Vital Signs: Last Vital Signs Temp 98.0 F 01/15/25 11:34 Pulse 75 01/15/25 11:34 Resp 18 01/15/25 11:34 BP 128/84 01/15/25 11:34 Pulse Ox 98 01/15/25 11:34 Oxygen Delivery Method Room Air 01/15/25 11:34 BMI result Body Mass Index 31.0 Tobacco/Smoking Status: Tobacco use Status Tobacco use date assessed 01/15/25 01/15/25 11:38 Patient Tobacco Use Status Never used Tobacco 01/15/25 11:38 e-Cigarette/Vaping Use Never Used 01/15/25 11:38 PHQ-9: PHQ-9 Score PHQ-9: Total score 0 01/15/25 11:58 Depression Screening Interpretation: Negative Thrive Assessment: Date of Thrive Assessment Date Thrive assessed 01/15/25 01/15/25 11:38 Currently or been in a relationship where the following occur: No concerns reported Const General: no acute distress HENMT Head: Yes normal to inspection Face and sinus: Yes normal facial exam Throat: Yes posterior oropharynx normal Eyes General: appearance normal, both eyes and all related structures Neck Neck: Yes no lymphadenopathy and Yes supple Resp Effort & Inspection: normal respiratory effort Auscultation: clear to auscultation bilaterally Cardio Rhythm: regular rhythm Heart sounds: S1 normal heart sound present and S2 normal heart sound present GI Inspection: Yes normal to inspection Palpation (GI): Soft to palpation Percussion: Yes normal to percussion Auscultation: normal bowel sounds Coding Level of Care Code Est Pt Level 4 (05149) Diagnoses Hyperlipidemia E78.5 HTN (hypertension) I10 Obesity (BMI 30-39.9) E66.9 Additional Codes PHQ-9 - 92372 - PHQ-9 Billing: Yes ([id number]) Assessment & Plan Assessment & Plan (1) Hyperlipidemia: Code(s): E78.5 - Hyperlipidemia, unspecified Category: Medical Plan: Continue pravastatin (2) HTN (hypertension): Comment: stress test negative 09/02, [facility], 09/11/23 Echo LVEF 60%, LA mildly to mod dilated, inf vena cava mildly dilated with poor inspiratory collapse consistent with elevated right atrial pressure Code(s): I10 - Essential (primary) hypertension Category: Medical Plan: continue current medications (3) Obesity (BMI 30-39.9): Code(s): E66.9 - Obesity, unspecified Category: Medical Plan: continue decreasing caloric intake increasing physical activity and Wegovy. Follow-up in 4 months Orders: Orders Comprehensive [place]. Panel Fast 4 Months E78.5 - Hyperlipidemia, unspecified, I10 - Essential (primary) hypertension Complete Blood Count Auto Diff 4 Months E78.5 - Hyperlipidemia, unspecified, I10 - Essential (primary) hypertension Lipid Panel 4 Months E78.5 - Hyperlipidemia, unspecified, I10 - Essential (pr imary) hypertension Medications: Refilled amlodipine 10 mg PO DAILY 90 tabs 3RF
[2025-01-15 11:34] VITALS: BP 128/84; PULSE 75; RESP 18; TEMP 36.7; O2SAT 98; BMI 31.0
== END 2025-01-15 12:09 | disposition home or self-care (01) ==
LOC: HO.HMCC 11:30
PROVIDERS: PCP Internal Medicine; Visit Provider Internal Medicine
DX: E78.5 Hyperlipidemia, unspecified (principal); I10 Essential (primary) hypertension; E66.9 Obesity, unspecified; Z68.31 Body mass index [BMI] 31.0-31.9, adult

== ENCOUNTER → 2025-01-15 11:29 | Outpatient (BNVA) | payer OTHER, SELFPAY | PROVIDERS: PCP Internal Medicine; Visit Provider Internal Medicine | DX: E78.5 Hyperlipidemia, unspecified (principal); I10 Essential (primary) hypertension; E66.9 Obesity, unspecified; Z68.31 Body mass index [BMI] 31.0-31.9, adult; Z79.899 Other long term (current) drug therapy | CPT/HCPCS: 96127 ==

== ENCOUNTER 2025-05-20 07:29 | Outpatient (REF) | payer OTHER, SELFPAY ==
[2025-05-20 07:49] LABS: MANUAL DIFF FLAG NO
[2025-05-20 08:49] LABS: Hematocrit 42.6 % (42.0-52.0); Hemoglobin 14.7 g/dl (14.0-18.0); Imm Gran Abs Auto 0.02 X10*3/uL (0.00-0.03); Imm Gran Pct Auto 0.3 % (0.0-0.4); Lymphocytes Absolute Auto 2.0 X10*3/uL (1.2-4.9); Mean Corpuscular HGB Conc 34.5 g/dl (31.0-36.0); Mean Corpuscular Hemoglobin 28.2 pg (27.0-33.0); Mean Corpuscular Volume 81.8 fL (80.0-98.0); NRBC Abs Auto 0.000 X10*3/uL (0.0-0.012); NRBC Pct Auto 0.0 /100WBC (0.0-0.2); Platelet Count 216 X10*3/uL (160-400); Red Blood Count 5.21 X10*6/uL (4.60-5.80); White Blood Count 6.6 X10*3/uL (4.8-10.8)
[2025-05-20 09:19] LABS: Alanine Aminotransferase 27 U/L (0-40); Albumin Level 4.7 g/dL (3.5-5.0); Alkaline Phosphatase 62 U/L (39-117); Anion Gap 12 (12-20); Aspartate Amino Transferase 25 U/L (5-37); Blood Urea Nitrogen 18 mg/dL (9-16); Calcium 9.5 mg/dL (8.4-10.2); Carbon Dioxide 27 mmol/L (22-29); Chloride 106 mmol/L (96-108); Cholesterol 189 mg/dL (<200); Estimated Glomerular Filt Rate > 60; HDL Cholesterol 53 mg/dL (>40); Potassium 4.4 mmol/L (3.3-5.1); Sodium 141 mmol/L (135-145); Total Protein 7.5 g/dL (6.5-8.0); Triglycerides 117 mg/dL (<150)
== END 2025-05-20 07:30 | disposition home or self-care (01) ==
LOC: HO.LAB 07:29
PROVIDERS: PCP Internal Medicine; Visit Provider Internal Medicine
DX: I10 Essential (primary) hypertension (principal); E78.5 Hyperlipidemia, unspecified
CPT/HCPCS: 36415; 80053; 80061; 85025

== ENCOUNTER 2025-05-21 12:10 | Outpatient (AMB) | payer OTHER, SELFPAY ==
[2025-05-21 12:20] VITALS: BP 124/80; PULSE 70; RESP 18; TEMP 36.6; O2SAT 97; BMI 30.3
--- NOTE | 2025-05-21 12:20 | A.OFFPC_ITS ---
Vital Signs 05/21/25 12:20 Height 5 ft 9 in Weight 205 lb BMI 30.3 BP 124/80 Blood Pressure Location Lt brachial Position Sitting Respiration 18 Pulse 70 Pulse Source Pulse Oximeter Temp 97.8 F Temp Source Oral Pulse Oximetry (%) 97 Oxygen Delivery Method Room Air Intake Visit Reasons: 4 month follow up Intake Note: Pt is here today for 4 months follow up visit on weight loss. Allergies olmesartan Adverse Reaction (Intermediate, Verified 05/21/25 12:20) myalgia Medication List - Last Reconciled 05/21/25 by Misty Pratt MD amlodipine 10 mg PO DAILY latanoprost 0.005% drps ophthalmic (eye) metoprolol succinate ER 25 mg PO DAILY pravastatin 40 mg PO DAILY semaglutide (weight loss) (Wegovy) 2.4 mg (0.75 mL) subcut QWEEK Tobacco use date assessed: 05/21/25 Dental Screening Dental Screen Date: 10/17/24 HPI 4 month follow up HPI Details Pt presents for HTN and hyperlipid, stable on meds. Patient has been on Wegovy for 1 year and lost total of 30 lb. his weight has been the same for the last 2 months. He has been decreasing caloric intake and exercising regularly. [facility] Medical History (Updated 05/21/25 @ 15:19 by Misty Pratt MD) HTN (hypertension) Carotid arterial disease Obesity (BMI 30-39.9) Normal colonoscopy Annual physical exam Glaucoma Hyperlipidemia Surgical History No pertinent past surgical history Family History Father HTN (hypertension) Mother Diabetes mellitus Brother No problems noted. Brother Substance use disorder Social History Housing: House Patient Tobacco Use Status: Never used Tobacco e-Cigarette/Vaping Use: Never Used service: No Current occupational status: employed Cognitive needs: No Hearing needs: No Vision needs: Yes Questionnaire PHQ-9 Over the last 2 weeks, how often have you been bothered by any of the following problems? 1. Little interest or pleasure in doing things: not at all 2. Feeling down, depressed, or hopeless: not at all 3. Trouble falling or staying asleep, or sleeping too much: not at all 4. Feeling tired or having little energy: not at all 5. Poor appetite or overeating: not at all 6. Feeling bad about yourself - or that you are a failure or have let yourself or your family down: not at all 7. Trouble concentrating on things, such as reading the newspaper or watching television: not at all 8. Moving or speaking so slowly that other people could have noticed. Or the opposite - being so fidgety or restless that you have been moving around a lot more than usual: not at all 9. Thoughts that you would be better off or of hurting yourself in some way: not at all Total score: 0 Depression Screening Interpretation: Negative Depression Screening Done: Yes Source: Developed by Drs. Fredrick Potter, Loree Rivers, Alhaji Hinton and colleagues, with an educational dave from [employer]. Thrive Questionnaire Date Thrive assessed: 10/10/24 I am a: Patient What is your living situation today?: I have a steady place to live Within the past 12 months, did the food you bought not last and you didn't have the money to get more?: Never true Within the past 12 months, did you worry whether your food would run out before you got money to buy more?: Never true Do you have trouble paying for medicines?: No Do you have trouble getting transportation to medical appointments?: No Do you have trouble paying your heating and electricity bill?: No Do you have trouble taking care of your child, family member or friend?: No Do you have trouble with day-to-day activities such as bathing, preparing meals, shopping, managing finances, etc.?: No Are you currently unemployed and looking for a job?: No Are you interested in more education?: No Please select the resources that you would like help with: None Currently or been in a relationship where the following occur: No concerns reported THRIVE Score: 0 BRANDON-7 AMB Questionnaire BRANDON-7 Date BRANDON - 7 assessed: 10/17/24 Feeling nervous, anxious, or on edge: 0 = Not at all Not being able to stop or control worryin = Not at all Worrying too much about different things: 0 = Not at all Trouble relaxin = Not at all Being so restless that it is hard to sit still: 0 = Not at all Becoming easily annoyed or irritable: 0 = Not at all Feeling afraid as if something awful might happen: 0 = Not at all Total BRANDON-7 score (0-4 normal; 5-9 mild; 10-14 moderate; 15-21 severe): 0 Source: Developed by Drs. Fredrick Potter, Loree Rivers, Alhaji Hinton and colleagues, with an educational dave from [employer]. Review of Systems Const All systems reviewed & are unremarkable except as noted in HPI and below Eyes Reports no additional complaints ENT Reports no additional complaints Card Reports no additional complaints Resp Reports no additional complaints GI Reports no additional complaints Reports no additional complaints Physical exam (Primary Care) Vital Signs: Last Vital Signs Temp 97.8 F 05/21/25 12:20 Pulse 70 05/21/25 12:20 Resp 18 05/21/25 12:20 BP 124/80 05/21/25 12:20 Pulse Ox 97 05/21/25 12:20 Oxygen Delivery Method Room Air 05/21/25 12:20 BMI result Body Mass Index 30.3 Tobacco/Smoking Status: Tobacco use Status Tobacco use date assessed 05/21/25 05/21/25 12:45 Patient Tobacco Use Status Never used Tobacco 05/21/25 12:20 e-Cigarette/Vaping Use Never Used 05/21/25 12:20 PHQ-9: PHQ-9 Score PHQ-9: Total score 0 05/21/25 13:04 Depression Screening Interpretation: Negative Thrive Assessment: Date of Thrive Assessment Date Thrive assessed 10/10/24 05/21/25 12:20 Currently or been in a relationship where the following occur: No concerns reported Const General: no acute distress Resp Effort & Inspection: normal respiratory effort Auscultation: clear to auscultation bilaterally Cardio Rhythm: regular rhythm Heart sounds: S1 normal heart sound present and S2 normal heart sound present Coding Level of Care Code Est Pt Level 4 (69973) Diagnoses Hyperlipidemia E78.5 HTN (hypertension) I10 Obesity (BMI 30-39.9) E66.9 Assessment & Plan Assessment & Plan (1) Hyperlipidemia: Code(s): E78.5 - Hyperlipidemia, unspecified Category: Medical Plan: Continue statin (2) HTN (hypertension): Comment: stress test negative 09/02, [facility], 09/11/23 Echo LVEF 60%, LA mildly to mod dilated, inf vena cava mildly dilated with poor inspiratory collapse consistent with elevated right atrial pressure Code(s): I10 - Essential (primary) hypertension Category: Medical Plan: Continue current medications (3) Obesity (BMI 30-39.9): Comment: Started Wegovy 03/2024 Code(s): E66.9 - Obesity, unspecified Category: Medical Plan: Continue Wegovy for not a 3 months. Decreasing caloric intake increasing physical activity discussed with the patient he will follow-up in September and if there is no significant weight loss Zepbound will be tried Orders: Orders Comprehensive [place]. Panel Fast 5 Months E78.5 - Hyperlipidemia, unspecified, I10 - Essential (primary) hypertension Lipid Panel 5 Months E78.5 - Hyperlipidemia, unspecified, I10 - Essential (primary) hypertension PSA,Total (Free>4and<10) 5 Months E78.5 - Hyperlipidemia, unspecified, I10 - Essential (primary) hypertension Complete Blood Count Auto Diff 5 Months E78.5 - Hyperlipidemia, unspecified, I10 - Essential (primary) hypertension UA w Microscopic 5 Months E78.5 - Hyperlipidemia, unspecified, I10 - Essential (primary) hypertension
== END 2025-05-21 13:19 | disposition home or self-care (01) ==
LOC: HO.HMCC 12:11
PROVIDERS: PCP Internal Medicine; Visit Provider Internal Medicine
DX: E78.5 Hyperlipidemia, unspecified (principal); I10 Essential (primary) hypertension; E66.9 Obesity, unspecified; Z68.30 Body mass index [BMI] 30.0-30.9, adult